=== PATIENT | female | born 1985 | race Caucasian/White ===

== ENCOUNTER → 2020-09-25 | Outpatient (CLI) | payer OTHER ==
--- NOTE | 2020-09-26 06:23 | MR ---
EXAMINATION TYPE: MR brain wo/w con DATE OF EXAM: 09/25/2020 COMPARISON: NONE HISTORY: Visual field defect s/p covid TECHNIQUE: Multiplanar, multisequence images of the brain and brainstem is performed without and with IV contras t, utilizing 4.5 mL intravenous Gadavist . FINDINGS: Diffusion weighted images demonstrate no evidence of a recent infarct or other diffusion ab normality. The ventricular system and cisternal spaces are normal in size and appearance. The brain volume is age appropriate. There is occasional focus of T2 hyperintensity seen throughout the white matter bilaterally. Roughly 2-4 lesions. For reference there is 5 mm lesion right frontal lobe axial image 20. Midline structures demonstrate normal morphology. Suprasellar cistern is maintained. The craniocervi rory junction appears within normal limits. Post contrast images demonstrate no abnormal enhancement. The dural venous sinuses appear patent. Moderate mucosal thickening involving maxillary sinuses bila terally. Moderate mucosal thickening involving ethmoid sinuses bilaterally left greater than right. G lobes are intact. IMPRESSION: 1. Minimal nonspecific white matter changes likely of clinical insignificance. No abnormal enhancemen t. 2. Moderate Chronic paranasal sinus disease as detailed above.
== END | disposition home or self-care (01) ==
LOC: RADMRIMAIN 13:47
PROVIDERS: ATTEND Ophthalmology
DX: R90.82 White matter disease, unspecified (principal); H53.40 Unspecified visual field defects
CPT/HCPCS: 70553; A9585

== ENCOUNTER 2020-10-09 11:39 | Emergency (ER) | payer OTHER ==
[~2020-10-09 11:39] MED LIST: methylPREDNISolone SOD SUCC 1,000 MG in SODIUM CHLORIDE 0.9% 250 ML IVPB NR
[2020-10-09] MEDS: LIDOCAINE 1% INJ 10MG/ML (20 ML MDV) SQ ONE (12:06)
[2020-10-09] MEDS: BACITRACIN OINT 1 EACH PACKET TOPICAL ONE (12:06)
--- NOTE | 2020-10-09 12:42 | ED ---
Wound/Laceration HPI - General Chief Complaint: Wound/Laceration Stated Complaint: fall, head lac Time Seen by Provider: 10/09/20 11:53 Source: patient, family Mode of arrival: ambulatory Limitations: no limitations - History of Present Illness Initial Comments: Patient is a 35-year-old female presenting to the emergency Department with complaints of a laceration to her forehead. Patient states that around 4 AM this morning he went to eat something to drink and tripped over her dog and fell forward, hitting her forehead on the coffee table. She did not lose consciousness. She states she has poor vision right now and did not see her dog in front of her. She is currently being worked up for possible MS. She denies use of consciousness, she denies being dizzy or lightheaded. She denies any nausea or vomiting. This fall happened approximately 8 hours prior to arrival. She denies being on blood thinners. She states she has some very mild soreness over the cut but no other headache. She thinks she might of had a bloody nose afterwards that she has dried blood in her nose. Her nose does not hurt, she has no active nose bleeding. She denies any other injuries from this fall. She has no further complaints. Her tetanus vaccine is up-to-date. - Related Data Home Medications Medication Instructions Recorded Confirmed No Known Home Medications 10/09/20 10/09/20 Allergies Allergy/AdvReac Type Severity Reaction Status Date / Time No Known Allergies Allergy Verified 10/09/20 11:48 Review of Systems ROS Statement: Those systems with pertinent positive or pertinent negative responses have been documented in the HPI. ROS Other: All systems not noted in ROS Statement are negative. Past Medical History Additional Past Medical History / Comment(s): poor vision History of Any Multi-Drug Resistant Organisms: None Reported Past Surgical History: No Surgical Hx Reported Past Psychological History: No Psychological Hx Reported Smoking Status: Current every day smoker Past Alcohol Use History: Occasional Past Drug Use History: None Reported General Exam - General Exam Comments Initial Comments: GENERAL: Patient is well-developed and well-nourished. Patient is nontoxic and in no acute distress. HEAD: Recent has a small hematoma on the left side of her forehead along with the laceration. This area is not tender to the touch. There is no signs of basal skull fracture. No other hematomas. EYES: Pupils equal round and reactive to light, extraocular movements intact, sclera anicteric, conjunctiva are normal. Eyelids were unremarkable. ENT: TMs normal, nares patent, oropharynx clear without exudates. Moist mucous membranes. She has some dried blood in her left nostril however no pain with palpation along the nasal bridge. NECK: Normal range of motion, supple without lymphadenopathy or JVD. She has no midline tenderness. LUNGS: Unlabored respirations. Breath sounds clear to auscultation bilaterally and equal. No wheezes rales or rhonchi. HEART: Regular rate and rhythm without murmurs, rubs or gallops. ABDOMEN: Soft, nontender, normoactive bowel sounds. No guarding, no rebound. No masses appreciated. : Deferred MUSCULOSKELETAL: Normal extremities with adequate strength and normal range of motion, no pitting or edema. No clubbing or cyanosis. NEUROLOGICAL: Patient is alert and oriented x 3. Motor and sensory are also intact. Cranial nerves II through XII grossly intact. Symmetrical smile. Normal speech, normal gait. PSYCH: Normal mood, normal affect. SKIN: Warm, Dry, normal turgor, no rashes. Patient has a 2 cm vertical laceration above her left eyebrow. No active bleeding. Limitations: no limitations Course Vital Signs 10/09/20 11:49 Temperature 98 F Pulse Rate 102 H Respiratory 16 Rate Blood Pressure 154/102 O2 Sat by Pulse 99 Oximetry Procedures - Laceration Laceration #1 Consent Obtained: verbal consent Indication: laceration Site: face (Left forehead, left eyebrow) Size (cm): 2 Description: linear Depth: simple, single layer Anesthetic Used: lidocaine 1% Anesthesia Technique: local infiltration Amount (mls): 4 Pre-repair: irrigated extensively Type of Sutures: nylon Size of Sutures: 5-0 Number of Sutures: 5 Technique: simple, interrupted Patient Tolerated Procedure: well Medical Decision Making - Medical Decision Making Patient is a 35-year-old female here with a 2 cm vertical laceration above the left eyebrow, happened about 8 hours prior to arrival. She denies loss of consciousness, she is not on blood thinners, no headache, no blurry vision, nausea or vomiting. She is up-to-date with her tetanus vaccine. Patient's wound was cleaned, closed with 5, 5-0 sutures. She tolerated procedure well. She is stable for discharge. She'll have sutures removed in 7-10 days. Case discussed with Dr. monsalve. Disposition Clinical Impression: Laceration of left eyebrow, Fall Disposition: HOME SELF-CARE Condition: Stable Instructions (If sedation given, give patient instructions): Care For Your Stitches (ED) Additional Instructions: Please return to the Emergency Department if symptoms worsen or any other concerns. Recommend ice to the area, keep area clean and dry. Sutures need to be removed in 7-10 days. Is patient prescribed a controlled substance at d/c from ED?: No Referrals: None,Stated [Primary Care Provider] - 1-2 days Time of Disposition: 12:42
[2020-10-09 12:52] VITALS: BP 148/88; PULSE 98; RESP 20; TEMP 98.2
== END 2020-10-09 12:51 | disposition home or self-care (01) ==
LOC: EC 11:39
DX: S01.112A Laceration without foreign body of left eyelid and periocular area, initial encounter (principal); S01.81XA Laceration without foreign body of other part of head, initial encounter; F17.200 Nicotine dependence, unspecified, uncomplicated; W01.190A Fall on same level from slipping, tripping and stumbling with subsequent striking against furniture, initial encounter
CPT/HCPCS: 99283; 12011; J2001

== ENCOUNTER 2020-10-10 13:30 | Emergency (ER) | payer OTHER ==
--- NOTE | 2020-10-10 14:13 | ED ---
General Adult HPI - General Chief complaint: Altered Mental Status Stated complaint: revisit - altered mental status Time Seen by Provider: 10/10/20 13:44 Source: patient Mode of arrival: ambulatory Limitations: no limitations - History of Present Illness Initial comments: Patient is a 35-year-old female, with hx of alcohol abuse, presenting to the emergency department for increased confusion after a fall yesterday. Patient was seen in the ER yesterday, evaluated for a laceration to her left eye after she tripped and fell over her dog. Patient states that throughout today she seems to be having some confusion, forgetting things and see and things that aren't there. She states she is also having increase in bruising and color changes to her left eye. She denies any additional falls or trauma. She is currently undergoing steroid infusions and being evaluated for MS. She denies any fevers or chills, she states she's had some mild pain around her left eye in her left forehead. She denies any nausea or vomiting, no abdominal pain, no chest pain or shortness of breath. She has no further complaints at this time. - Related Data Home Medications Medication Instructions Recorded Confirmed Methylprednisolone 1000mg Iv 1,000 mg IV DAILY 10/10/20 10/10/20 predniSONE [Deltasone] See Taper PO DIRECTED 10/10/20 10/10/20 Allergies Allergy/AdvReac Type Severity Reaction Status Date / Time No Known Allergies Allergy Verified 10/10/20 14:31 Review of Systems ROS Statement: Those systems with pertinent positive or pertinent negative responses have been documented in the HPI. ROS Other: All systems not noted in ROS Statement are negative. Past Medical History Additional Past Medical History / Comment(s): poor vision, currently getting evlauated for MS History of Any Multi-Drug Resistant Organisms: None Reported Past Surgical History: No Surgical Hx Reported Past Psychological History: Anxiety, Depression Smoking Status: Current every day smoker Past Alcohol Use History: Daily Past Drug Use History: None Reported General Exam - General Exam Comments Initial Comments: GENERAL: Patient is well-developed and well-nourished. Patient is nontoxic and in no acute distress. HEAD: Atraumatic, normocephalic. Repaired laceration to left forehead, above left eyebrow. No hematoma. EYES: Pupils equal round and reactive to light, extraocular movements intact, sclera anicteric, conjunctiva are normal. Eyelids were unremarkable. There is some bruising noted around the left eye, some mild swelling present. ENT: TMs normal, nares patent, oropharynx clear without exudates. Moist mucous membranes. NECK: Normal range of motion, supple without lymphadenopathy or JVD. There is no midline tenderness. LUNGS: Unlabored respirations. Breath sounds clear to auscultation bilaterally and equal. No wheezes rales or rhonchi. HEART: Regular rate and rhythm without murmurs, rubs or gallops. ABDOMEN: Soft, nontender, normoactive bowel sounds. No guarding, no rebound. No masses appreciated. : Deferred MUSCULOSKELETAL: Normal extremities with adequate strength and normal range of motion, no pitting or edema. No clubbing or cyanosis. NEUROLOGICAL: Patient is alert and oriented x 3. Motor and sensory are also intact. Cranial nerves II through XII grossly intact. Symmetrical smile. Normal speech, normal gait. PSYCH: Normal mood, normal affect. SKIN: Warm, Dry, normal turgor, no rashes. Patient has a 2 cm vertical repaired laceration above the left eyebrow, that was repaired yesterday, incision looks clean, and intact. Limitations: no limitations Course Vital Signs 10/10/20 10/10/20 13:39 15:23 Temperature 98.2 F 99.3 F Pulse Rate 111 H 100 Respiratory 20 18 Rate Blood Pressure 135/80 126/88 O2 Sat by Pulse 97 95 Oximetry Medical Decision Making - Medical Decision Making Patient is a 35-year-old female history of alcohol abuse presenting for increased confusion today after suffering a fall yesterday. Her vitals are stable. CT of the brain, C-spine, facial bones revealed no acute process. I discussed the patient's symptoms are most likely related to suffering a concussion yesterday. I recommended "brain rest", limiting up close activities, decreasing her alcohol intake. Patient's mother is here with her now and will help patient with this. He should is in agreement with this plan of care and is stable for discharge. Return parameters were discussed with them they verbalized understanding. Case discussed Dr. Sweet. Disposition Clinical Impression: Fall, Concussion Disposition: HOME SELF-CARE Condition: Stable Instructions (If sedation given, give patient instructions): Concussion (ED) Additional Instructions: Please return to the Emergency Department if symptoms worsen or any other concerns. Recommend rest, limit up close activities including reading, writing, phone usage. Limit physical activity. Please follow up with your primary care physician. Is patient prescribed a controlled substance at d/c from ED?: No Referrals: None,Stated [Primary Care Provider] - 1-2 days Time of Disposition: 15:20
--- NOTE | 2020-10-10 14:34 | CT ---
EXAMINATION TYPE: CT brain theodora wo con DATE OF EXAM: 10/10/2020 COMPARISON: None HISTORY: Fall, facial trauma CT DLP: 949.7 mGycm Automated exposure control for dose reduction was used. Ventricles and sulci appear normal. There is no mass effect nor midline shift. There is no sign of in tracranial hemorrhage. There is left frontal scalp soft tissue swelling. Calvarium is intact. Cervical vertebra have normal alignment. Disc spaces are normal. Posterior cul-de-sac intact. Facet j oints are intact. IMPRESSION: Negative CT scan of the cervical spine. Negative CT scan of the brain. Left frontal scalp soft tissue swelling.
--- NOTE | 2020-10-10 14:39 | CT ---
EXAMINATION TYPE: CT facial bones wo con DATE OF EXAM: 10/10/2020 COMPARISON: None HISTORY: Fall, facial trauma CT DLP: included in CT Brain mGycm Automated exposure control for dose reduction was used. Images obtained from the bottom of the mandible to the top of the frontal sinuses with no contrast. The mandibular ring is intact. The temporomandibular joints are intact. Zygomatic arches appear manfred l. There is 3 cm cystic enlargement of the anterior maxilla on the left of midline involving multiple teeth. No fracture line seen. The nasal bone is intact. There is no evidence of orbital mass. There is soft tissue swelling anterior to the left orbit. There is left frontal scalp soft tissue swelling. There is fairly normal aeration of the paranasal sinuses. There is normal aeration of the mastoid ai r cells. IMPRESSION: Soft tissue swelling on the left side. No fracture seen. Large maxillary cyst consistent with a dentigerous cyst on the left of midline.
[2020-10-10 15:25] VITALS: BP 126/88; PULSE 100; RESP 18; TEMP 99.3
== END 2020-10-10 15:25 | disposition home or self-care (01) ==
LOC: EC 13:30
DX: S06.0X0A Concussion without loss of consciousness, initial encounter (principal); S01.81XA Laceration without foreign body of other part of head, initial encounter; W01.0XXA Fall on same level from slipping, tripping and stumbling without subsequent striking against object, initial encounter; F17.200 Nicotine dependence, unspecified, uncomplicated
CPT/HCPCS: 70450; 70486; 72125; 99284

== ENCOUNTER 2020-11-12 12:39 | Emergency (ER) | payer OTHER ==
[2020-11-12 12:42] VITALS: TEMP 98
[2020-11-12 12:44] LABS: Glucose,Whole Blood 371 mg/dL (75-99)
--- NOTE | 2020-11-12 13:33 | ED ---
General Adult HPI - General Chief complaint: Recheck/Abnormal Lab/Rx Stated complaint: high blood sugar Source: patient, RN notes reviewed, old records reviewed Mode of arrival: ambulatory Limitations: no limitations - History of Present Illness Initial comments: 35-year-old white female, alert and oriented 4 well-appearing. Presents to the emergency room with family member complaining of elevated blood glucose level of 371. Patient was receiving IV methylprednisolone thousand milligrams throughout the week treatment for MS by Dr. Morris when she went in today and they told her that she could not get the infusion because her blood glucose level was over 400. Case is she has had increased thirst and increased urination but no other symptoms. She has no nausea vomiting diarrhea, no fevers and no abdominal pain. -: days(s) (1) Severity scale (1-10): 0 Associated Symptoms: other (Increased thirst and increased urination) - Related Data Home Medications Medication Instructions Recorded Confirmed Mirtazapine [Remeron] 15 mg PO HS 11/12/20 11/12/20 Sertraline [Zoloft] 50 mg PO DAILY 11/12/20 11/12/20 predniSONE See Taper PO DAILY 11/12/20 11/12/20 Allergies Allergy/AdvReac Type Severity Reaction Status Date / Time No Known Allergies Allergy Verified 11/12/20 14:17 Review of Systems ROS Statement: Those systems with pertinent positive or pertinent negative responses have been documented in the HPI. ROS Other: All systems not noted in ROS Statement are negative. Past Medical History Additional Past Medical History / Comment(s): poor vision, currently getting evlauated for MS History of Any Multi-Drug Resistant Organisms: None Reported Past Surgical History: No Surgical Hx Reported Past Anesthesia/Blood Transfusion Reactions: No Reported Reaction Past Psychological History: Anxiety, Depression Smoking Status: Current every day smoker Past Alcohol Use History: Daily Past Drug Use History: None Reported General Exam Limitations: no limitations General appearance: alert, in no apparent distress Head exam: Present: atraumatic, normocephalic, normal inspection Eye exam: Present: normal appearance, PERRL, EOMI. Absent: scleral icterus, conjunctival injection, periorbital swelling ENT exam: Present: normal exam, normal oropharynx, mucous membranes moist Neck exam: Present: normal inspection, full ROM. Absent: tenderness, meningismus, lymphadenopathy, thyromegaly Respiratory exam: Present: normal lung sounds bilaterally. Absent: respiratory distress, wheezes, rales, rhonchi, stridor, chest wall tenderness, accessory m uscle use, decreased breath sounds, prolonged expiratory Cardiovascular Exam: Present: normal rhythm, tachycardia, normal heart sounds. Absent: systolic murmur, diastolic murmur, rubs, gallop, clicks GI/Abdominal exam: Present: soft, distended, normal bowel sounds. Absent: tenderness, guarding, rebound, rigid Extremities exam: Present: full ROM, normal capillary refill, pedal edema. Absent: tenderness, joint swelling, calf tenderness Back exam: Present: normal inspection, full ROM. Absent: tenderness, CVA tenderness (R), CVA tenderness (L), muscle spasm, paraspinal tenderness, vertebral tenderness Neurological exam: Present: alert, oriented X3, CN II-XII intact Psychiatric exam: Present: normal affect, normal mood Skin exam: Present: warm, dry, intact, normal color. Absent: rash, cyanosis, diaphoretic, erythema, petechiae, pallor, mottled Course Vital Signs 11/12/20 11/12/20 12:40 16:17 Temperature 98.0 F Pulse Rate 112 H 74 Respiratory 18 17 Rate Blood Pressure 172/99 158/93 O2 Sat by Pulse 96 96 Oximetry Medical Decision Making - Medical Decision Making Glucose of 367 patient was given a liter of normal saline. Her lipase is elevated at 668. There is 4+ glucose in her urine. She has been receiving IV methylprednisone infusions for treatment of multiple sclerosis. She was told to come to the emergency room today and did not get her treatment because of the elevated blood glucose level. White blood glucose is down to 282 after IV fluids. She'll be discharged home to follow up with Dr Talavera. Case discussed with Dr. Ulrich. - Lab Data Result diagrams: 11/12/20 13:33 11/12/20 13:33 Lab Results 11/12/20 11/12/20 11/12/20 Range/Units 12:42 13:33 13:33 WBC 8.3 (3.8-10.6) k/uL RBC 3.71 L (3.80-5.40) m/uL Hgb 13.2 (11.4-16.0) gm/dL Hct 39.1 (34.0-46.0) % MCV 105.5 H (80.0-100.0) fL MCH 35.5 H (25.0-35.0) pg MCHC 33.6 (31.0-37.0) g/dL RDW 13.7 (11.5-15.5) % Plt Count 427 (150-450) k/uL MPV 7.9 Neutrophils % (Manual) 73 % Band Neuts % (Manual) 2 % Lymphocytes % (Manual) 18 % Monocytes % (Manual) 6 % Metamyelocytes % 1 % Myelocytes % 1 % Neutrophils # (Manual) 6.20 (1.3-7.7) k/uL Lymphocytes # (Manual) 1.49 (1.0-4.8) k/uL Monocytes # (Manual) 0.50 (0-1.0) k/uL Metamyelocytes # (Man) 0.08 H (0) k/uL Myelocytes # (Manual) 0.08 H (0) k/uL Nucleated RBCs 0 (0-0) /100 WBC Manual Slide Review Performed Macrocytosis Moderate Sodium (137-145) mmol/L Potassium (3.5-5.1) mmol/L Chloride (98-107) mmol/L Carbon Dioxide (22-30) mmol/L Anion Gap mmol/L BUN (7-17) mg/dL Creatinine (0.52-1.04) mg/dL Est GFR (CKD-EPI)AfAm (>60 ml/min/1.73 sqM) Est GFR (CKD-EPI)NonAf (>60 ml/min/1.73 sqM) Glucose (74-99) mg/dL POC Glucose (mg/dL) 371 H (75-99) mg/dL POC Glu Manager Of Business Operations ID [place], Teri Calcium (8.4-10.2) mg/dL Total Bilirubin (0.2-1.3) mg/dL AST (14-36) U/L ALT (4-34) U/L Alkaline Phosphatase (38-126) U/L Total Protein (6.3-8.2) g/dL Albumin (3.5-5.0) g/dL Amylase (30-110) U/L Lipase (23-300) U/L Urine Color Light Yellow Urine Appearance Clear (Clear) Urine pH 7.0 (5.0-8.0) Ur Specific [place] 1.033 (1.001-1.035) Urine Protein Trace H (Negative) Urine Glucose (UA) 4+ H (Negative) Urine Ketones Trace H (Negative) Urine Blood Negative (Negative) Urine Nitrite Negative (Negative) Urine Bilirubin Negative (Negative) Urine Urobilinogen <2.0 (<2.0) mg/dL Ur Leukocyte Esterase Negative (Negative) Urine HCG, Qual (Not Detectd) 11/12/20 11/12/20 11/12/20 Range/Units 13:33 13:33 16:00 WBC (3.8-10.6) k/uL RBC (3.80-5.40) m/uL Hgb (11.4-16.0) gm/dL Hct (34.0-46.0) % MCV (80.0-100.0) fL MCH (25.0-35.0) pg MCHC (31.0-37.0) g/dL RDW (11.5-15.5) % Plt Count (150-450) k/uL MPV Neutrophils % (Manual) % Band Neuts % (Manual) % Lymphocytes % (Manual) % Monocytes % (Manual) % Metamyelocytes % % Myelocytes % % Neutrophils # (Manual) (1.3-7.7) k/uL Lymphocytes # (Manual) (1.0-4.8) k/uL Monocytes # (Manual) (0-1.0) k/uL Metamyelocytes # (Man) (0) k/uL Myelocytes # (Manual) (0) k/uL Nucleated RBCs (0-0) /100 WBC Manual Slide Review Macrocytosis Sodium 132 L (137-145) mmol/L Potassium 3.6 (3.5-5.1) mmol/L Chloride 96 L (98-107) mmol/L Carbon Dioxide 27 (22-30) mmol/L Anion Gap 9 mmol/L BUN 20 H (7-17) mg/dL Creatinine 0.49 L (0.52-1.04) mg/dL Est GFR (CKD-EPI)AfAm >90 (>60 ml/min/1.73 sqM) Est GFR (CKD-EPI)NonAf >90 (>60 ml/min/1.73 sqM) Glucose 367 H (74-99) mg/dL POC Glucose (mg/dL) 282 H (75-99) mg/dL POC Glu Manager Of Business Operations ID SUN Gorman Andre Calcium 9.8 (8.4-10.2) mg/dL Total Bilirubin 0.3 (0.2-1.3) mg/dL AST 33 (14-36) U/L ALT 23 (4-34) U/L Alkaline Phosphatase 86 (38-126) U/L Total Protein 6.6 (6.3-8.2) g/dL Albumin 4.2 (3.5-5.0) g/dL Amylase 96 (30-110) U/L Lipase 668 H (23-300) U/L Urine Color Urine Appearance (Clear) Urine pH (5.0-8.0) Ur Specific [place] (1.001-1.035) Urine Protein (Negative) Urine Glucose (UA) (Negative) Urine Ketones (Negative) Urine Blood (Negative) Urine Nitrite (Negative) Urine Bilirubin (Negative) Urine Urobilinogen (<2.0) mg/dL Ur Leukocyte Esterase (Negative) Urine HCG, Qual Not Detected (Not Detectd) Disposition Clinical Impression: Hyperglycemia Disposition: HOME SELF-CARE Condition: Good Instructions (If sedation given, give patient instructions): Nondiabetic Hyperglycemia (ED) Additional Instructions: Continue taking the medications prescribed by your primary care doctor. Follow up with Dr. Talavera next week. Return to the emergency room with any worsening symptoms. Is patient prescribed a controlled substance at d/c from ED?: No Referrals: Simon Talavera MD [Primary Care Provider] - 1-2 days Time of Disposition: 16:15
[2020-11-12] MEDS: SODIUM CHLORIDE 0.9% 1,000 ML IV STA (13:37)
[2020-11-12 13:51] LABS: HCT 39.1 % (34.0-46.0); HGB 13.2 gm/dL (11.4-16.0); MCH 35.5 pg (25.0-35.0); MCHC 33.6 g/dL (31.0-37.0); MCV 105.5 fL (80.0-100.0); Macrocytosis Moderate; Mean Platelet Volume 7.9; Platelet Count 427 k/uL (150-450); RBC 3.71 m/uL (3.80-5.40); RDW 13.7 % (11.5-15.5); WBC 8.3 k/uL (3.8-10.6)
[2020-11-12 14:10] LABS: ALT 23 U/L (4-34); AST 33 U/L (14-36); African American GFR (CKD) >90 (>60 ml/min/1.73 sqM); Albumin 4.2 g/dL (3.5-5.0); Alkaline Phosphatase 86 U/L (38-126); Amylase 96 U/L (30-110); Anion Gap 9 mmol/L; Blood Urea Nitrogen 20 mg/dL (7-17); Calcium 9.8 mg/dL (8.4-10.2); Carbon Dioxide 27 mmol/L (22-30); Chloride 96 mmol/L (98-107); Glucose 367 mg/dL (74-99); Lipase 668 U/L (23-300); Non-African American GFR(CKD) >90 (>60 ml/min/1.73 sqM); Potassium 3.6 mmol/L (3.5-5.1); Sodium 132 mmol/L (137-145); Total Bilirubin 0.3 mg/dL (0.2-1.3); Total Protein 6.6 g/dL (6.3-8.2)
[2020-11-12 14:23] LABS: Appearance,Urine Clear (Clear); Bilirubin,Urine Negative (Negative); Blood,Urine Negative (Negative); Color,Urine Light Yellow; Glucose,Urine (UA) 4+ (Negative); Ketones,Urine Trace (Negative); Leukocyte Esterase,Urine Negative (Negative); Nitrite,Urine Negative (Negative); Protein,Urine Trace (Negative); Specific Gravity,Urine 1.033 (1.001-1.035); Urobilinogen,Urine <2.0 mg/dL (<2.0)
[2020-11-12 15:15] LABS: Band Neutrophils % 2 %; Lymphocytes # (M) 1.49 k/uL (1.0-4.8); Metamyelocytes # (M) 0.08 k/uL (0); Metamyelocytes % 1 %; Myelocytes # (M) 0.08 k/uL (0); Myelocytes % 1 %; Neutrophils % (M) 73 %; Nucleated Red Blood Cells 0 /100 WBC (0-0); Total Cells Counted 200
[2020-11-12 16:02] LABS: Glucose,Whole Blood 282 mg/dL (75-99)
[2020-11-12 16:18] VITALS: BP 158/93; PULSE 74; RESP 17
== END 2020-11-12 16:24 | disposition home or self-care (01) ==
LOC: EC 12:39
DX: R73.9 Hyperglycemia, unspecified (principal); F32.9 Major depressive disorder, single episode, unspecified; F41.9 Anxiety disorder, unspecified; F17.200 Nicotine dependence, unspecified, uncomplicated
CPT/HCPCS: 36415; 80053; 81003; 81025; 82150; 83690; 85025; 96360; 96361; 99283

== ENCOUNTER → 2020-11-22 | Outpatient (CLI) | payer OTHER ==
[2020-11-22 20:51] LABS: Appearance,CSF Clear; CSF Tube Number 3; Nucleated Cells, CSF 0 u/L (0-5); Red Blood Cell,CSF 0 u/L (0-10)
[2020-11-24 13:05] LABS: IgG - CSF 2.5 mg/dL (0.0 - 3.4); IgG/Albumin Index (CSF) 0.62 (0.00 - 0.77); Immunoglobulin G 525 mg/dL (700 - 1600)
== END | disposition home or self-care (01) ==
LOC: LABWHC1 09:10
PROVIDERS: ATTEND Nurse Practitioner Acute Care
DX: R90.82 White matter disease, unspecified (principal)
CPT/HCPCS: 36415; 82040; 82042; 82784; 83916; 87801; 88108; 89050

== ENCOUNTER → 2021-01-26 | Outpatient (CLI) | payer OTHER ==
[2021-01-27 06:47] LABS: Rheumatoid Factor, Qnt <10 IU/mL (0-15)
[2021-01-27 10:03] LABS: Angiotensin-1 Converting Enz. 68 U/L (8-52)
== END | disposition home or self-care (01) ==
LOC: LABWHC1 14:28
PROVIDERS: ATTEND Ophthalmology
DX: H47.299 Other optic atrophy, unspecified eye (principal)
CPT/HCPCS: 36415; 82164; 85549; 85652; 86038; 86140; 86431; 86780

== ENCOUNTER → 2021-02-15 | Outpatient (CLI) | payer OTHER | END | disposition home or self-care (01) | LOC: LABWHC1 12:36 | PROVIDERS: ATTEND Psychiatry & Neurology Neurology | DX: I49.9 Cardiac arrhythmia, unspecified (principal) | CPT/HCPCS: 36415; 93005 ==

== ENCOUNTER → 2021-02-15 | Outpatient (CLI) | payer OTHER ==
[2021-02-15 12:50] LABS: Basophils # (A) 0.1 k/uL (0-0.2); Basophils % (A) 1 %; Eosinophils # (A) 0.4 k/uL (0-0.7); Eosinophils % (A) 6 %; HCT 42.7 % (34.0-46.0); HGB 13.7 gm/dL (11.4-16.0); Lymphocytes # (A) 2.4 k/uL (1.0-4.8); Lymphocytes % (A) 37 %; MCH 30.6 pg (25.0-35.0); MCV 95.7 fL (80.0-100.0); Mean Platelet Volume 8.1; Monocytes # (A) 0.3 k/uL (0-1.0); Monocytes % (A) 4 %; Neutrophils # (A) 3.3 k/uL (1.3-7.7); Neutrophils % (A) 50 %; Platelet Count 267 k/uL (150-450); RBC 4.47 m/uL (3.80-5.40); RDW 12.3 % (11.5-15.5); WBC 6.6 k/uL (3.8-10.6)
[2021-02-15 13:37] LABS: T4, Free (Free Thyroxine) 0.92 ng/dL (0.78-2.19)
--- NOTE | 2021-02-15 13:38 | CT ---
EXAMINATION TYPE: CT chest wo/w con DATE OF EXAM: 02/15/2021 COMPARISON: None HISTORY: 35-year-old female H54.7, unspecified visual loss, rule out sarcoidosis. Abnormal labs TECHNIQUE: Contiguous axial scanning of the chest before and after the administration of 100 mL of Is ovue 300. Coronal/sagittal reconstructions performed. CT DLP: 769mGycm. Automatic exposure control utilized for a dose reduction. FINDINGS: Heart normal size without pericardial effusion. Aorta normal caliber with conventional arch vessel branching anatomy. Scattered nonenlarged mediastinal lymph nodes measuring up to 7 mm in the subcarinal region. Some poorly defined soft tissue density in the anterior mediastinum suggests residual thymic tissue. Right hilar lymph node mildly enlarged at 1.3 cm, axial image 26 and coronal image 44. Otherwise, no thoracic lymphadenopathy by CT size criteria. There is mild scattered centrilobular emphysema. 6 mm subpleural pulmonary nodule lateral left base, axial image 38 and 42. Minimal dependent atelecta sis. No consolidation or pleural effusion. No perilymphatic nodularity. No thickening of the bronchovascul ar bundles or other specific findings of sarcoidosis. Old healed fracture deformity left lateral sixth and seventh ribs. Tiny hiatal hernia. 1.6 cm cortical cyst left kidney. Otherwise, visualized upper abdomen shows no gr oss abnormality. Bones: Gentle dextroconvex curvature centered along the upper third thoracic spine could be positiona l or due to scoliosis. IMPRESSION: 1. A couple 6 mm subpleural pulmonary nodules at the lateral left base. Probable subtle scarring give n overlying healed fracture deformities of the left lateral sixth and seventh ribs. Reassess status 6 month follow-up. 2. Mildly enlarged 1.3 cm right hilar lymph node probably reactive/post inflammatory. This can also b e reassessed at follow-up. 3. COPD with mild emphysema.
[2021-02-15 13:52] LABS: Appearance,Urine Cloudy (Clear); Bacteria,Urine Rare /hpf; Bilirubin,Urine Negative (Negative); Blood,Urine Small (Negative); Color,Urine Yellow; Glucose,Urine (UA) Negative (Negative); Ketones,Urine Negative (Negative); Leukocyte Esterase,Urine Negative (Negative); Mucus,Urine Rare /hpf; Nitrite,Urine Negative (Negative); PH, Urine 6.5 (5.0-8.0); Protein,Urine Negative (Negative); RBC,Urine 31 /hpf (0-5); Specific Gravity,Urine 1.019 (1.001-1.035); Squamous Epithelial Cell,Urine 1 /hpf (0-4); Urobilinogen,Urine <2.0 mg/dL (<2.0); WBC,Urine 4 /hpf (0-5)
[2021-02-15 20:46] LABS: Chol/HDL Ratio 5.54 Ratio; LDL Cholesterol,Calculated 216.1 mg/dL (0.0-131.0); Triglycerides 99.7 mg/dL (0.00-149.00); VLDL Calculation 19.94 mg/dL (5.00-40.00)
== END | disposition home or self-care (01) ==
LOC: RADCTMAIN 11:45
PROVIDERS: ATTEND Ophthalmology
DX: R91.8 Other nonspecific abnormal finding of lung field (principal); J43.9 Emphysema, unspecified; R59.0 Localized enlarged lymph nodes
CPT/HCPCS: 84439; 83880; 80061; 84443; 84484; 85025; 81001; 84480; 71270; 36415; Q9967

== ENCOUNTER → 2021-03-10 | Outpatient (CLI) | payer OTHER ==
[2021-03-10 20:41] LABS: C Reactive Protein <0.30 mg/dL (0.00-0.80)
[2021-03-10 22:33] LABS: Cyclic Citrull Pep IgG Unit <0.5 U/mL; Cyclic Citrullinated Pep IgG NEGATIVE (NEGATIVE)
== END | disposition home or self-care (01) ==
LOC: LABWHC1 10:22
PROVIDERS: ATTEND Internal Medicine
DX: Z00.00 Encounter for general adult medical examination without abnormal findings (principal); M13.0 Polyarthritis, unspecified; E55.9 Vitamin D deficiency, unspecified
CPT/HCPCS: 36415; 82306; 85652; 86140; 86200; 86235

== ENCOUNTER 2021-05-18 22:43 | Emergency (ER) | payer OTHER ==
--- NOTE | 2021-05-18 23:50 | XR ---
EXAMINATION TYPE: XR Hip Complete RT DATE OF EXAM: 05/18/2021 COMPARISON: NONE HISTORY: Hip pain TECHNIQUE: 2 views FINDINGS: There is no evidence of fracture nor dislocation. Hip joint space is fairly normal. There a re phleboliths in the pelvis. IMPRESSION: Negative right hip exam.
[2021-05-19] MEDS ORDERED: KETOROLAC 15 MG/ML 1 ML VIAL IM STA (00:29)
--- NOTE | 2021-05-19 00:33 | ED ---
Extremity Problem HPI - General Chief complaint: Extremity Problem,Nontraumatic Stated complaint: Rt Hip Pain Source: patient Mode of arrival: ambulatory Limitations: no limitations - History of Present Illness Initial comments: 35-year-old female presents emergency Department with reported right hip pain. She states that yesterday she was attempting to get up out of bed when she felt a pop in her right hip. States that she has had significant pain which radiates around to the inner part the groin and down the leg. She has been able to ambulate. States that the pain waxes and wanes. It is reproduced with movement and better with rest. She went to physical therapy today for other diffuse joint pain that she has. They recommended that she obtain an x-ray to look for possible dislocation. She denies any numbness, tingling or weakness in her legs. No bowel or bladder incontinence. Denies any back pain. No other alleviating, precipitating factors - Related Data Home Medications Medication Instructions Recorded Confirmed Mirtazapine [Remeron] 15 mg PO HS 11/12/20 11/12/20 Sertraline [Zoloft] 50 mg PO DAILY 11/12/20 11/12/20 predniSONE See Taper PO DAILY 11/12/20 11/12/20 Previous Rx's Medication Instructions Recorded HYDROcodone/APAP 7.5-325MG [[place] 1 tab PO Q6HR PRN 3 Days #12 tab 05/19/21 7.5-325] Allergies Allergy/AdvReac Type Severity Reaction Status Date / Time No Known Allergies Allergy Verified 05/18/21 23:22 Review of Systems ROS Statement: Those systems with pertinent positive or pertinent negative responses have been documented in the HPI. ROS Other: All systems not noted in ROS Statement are negative. Past Medical History Additional Past Medical History / Comment(s): poor vision, currently getting evlauated for MS History of Any Multi-Drug Resistant Organisms: None Reported Past Surgical History: No Surgical Hx Reported Past Anesthesia/Blood Transfusion Reactions: No Reported Reaction Past Psychological History: Anxiety, Depression Smoking Status: Current every day smoker Past Alcohol Use History: Daily Past Drug Use History: None Reported General Exam Limitations: no limitations Course Vital Signs 05/18/21 05/19/21 23:19 00:44 Temperature 98.4 F 98.1 F Pulse Rate 76 70 Respiratory 18 16 Rate Blood Pressure 107/71 133/70 O2 Sat by Pulse 96 98 Oximetry Medical Decision Making - Medical Decision Making Upon arrival patient was placed into [facility]. Evaluation reveals that the patient is neurovascularly intact. X-ray was performed which demonstrates no acute process. Symptoms are concerning for internal derangement. She is given a dose of Toradol. Discharged home with prescription for [place]. [facility] for further imaging and evaluation. Return for any new or worsening symptoms. Patient agreed to plan she was discharged home in stable condition Disposition Clinical Impression: Hip pain, right Disposition: HOME SELF-CARE Condition: Stable Instructions (If sedation given, give patient instructions): Hip Pain (ED) Additional Instructions: Please follow-up with the [facility] for further imaging of your hip. Return to the emergency room for any new or worsening symptoms Prescriptions: HYDROcodone/APAP 7.5-325MG [[place] 7.5-325] 1 tab PO Q6HR PRN 3 Days #12 tab PRN Reason: Pain Is patient prescribed a controlled substance at d/c from ED?: Yes When asked, does pt state using other controlled substances?: No If prescribed controlled substance>3 days was MAPS reviewed?: Prescribed <3 Days If opioid is for acute pain is fill amount 7 days or less?: Yes If Rx opioid, was Start Talking consent form obtained?: Yes Referrals: Simon Talavera MD [Primary Care Provider] - 1-2 days Dat Mitchell MD [STAFF PHYSICIAN] - 1-2 days Time of Disposition: 00:32
[2021-05-19 00:45] VITALS: BP 133/70; PULSE 70; RESP 16; TEMP 98.1
== END 2021-05-19 00:44 | disposition home or self-care (01) ==
LOC: EC 22:43
DX: M25.551 Pain in right hip (principal); F32.A Depression, unspecified; F41.9 Anxiety disorder, unspecified; F17.200 Nicotine dependence, unspecified, uncomplicated; Z79.52 Long term (current) use of systemic steroids; Z79.899 Other long term (current) drug therapy; X50.1XXA Overexertion from prolonged static or awkward postures, initial encounter
CPT/HCPCS: 73502; 99283; 96372; J1885